=== PATIENT | male | born 1960 | race Caucasian/White ===

== ENCOUNTER 2016-06-30 13:03 | Inpatient (IN) | payer OTHER ==
[~2016-06-30] VITALS: Ht 172.7 cm; Wt 60.4 kg
[~2016-06-30 13:03] MED LIST: ASPIRIN 8181 MG PO; AUGMENTIN875TAB PO; LIBRIUM25 MG PO; METOPROL TAR25 M1 PO; NO HOME MEDS; PREDNISONE10 MG PO; STERAPRED DS10 MG PO; ULTRAM50 M1 PO; VENTOLIN HF1 IN; ZITHROMAX250 MG PO
[2016-06-30] MEDS ORDERED: BACTRIM DS1 TAB PO (13:24)
[2016-06-30] MEDS ORDERED: LASIX 20 MG20 MG/TAB PO (13:24)
[2016-06-30] MEDS ORDERED: DICLOFENAC50 MG PO (13:26)
[2016-06-30] MEDS ORDERED: K-DUR/KLOR-CON20 MEQ PO (13:27)
[2016-06-30 13:43] LABS: HEMATOCRIT 31.8 % (39.0-50.0); HEMOGLOBIN 11.3 g/dl (14.0-18.0); IMMATURE GRANULOCYTES 0.3 % (0.0-1.0); MEAN CELL VOLUME 97.8 fL CALC (80.0-100.0); MEAN CORPUSCULAR HGB 34.8 pG CALC (26.0-32.0); MEAN CORPUSCULAR HGB CONC 35.5 g/L CALC (32.0-36.0); NEUT# 3.67 thou/uL (1.82-7.42); RED BLOOD COUNT 3.25 mill/uL (4.70-6.10); RED CELL DISTRI WIDTH 14.4 % (11.5-15.5)
[2016-06-30 14:01] LABS: ALBUMIN 2.8 g/dL (3.2-5.0); ALKALINE PHOSPHATASE 126 u/l (38-126); ANION GAP 13 (6-22 (CALC)); BILIRUBIN, TOTAL 2.3 mg/dL (0.0-1.4); BUN 4 mg/dL (9-20); BUN/CREATININE RATIO 7 (12-20 (CALC)); CALCIUM 8.2 mg/dL (8.4-10.2); CARBON DIOXIDE 31 mmol/l (22-30); CHLORIDE 96 mmol/l (95-108); CREATININE 0.5 mg/dL (0.7-1.3); GFR > 60 ML/MIN (>=60 (CALC)); GFR FOR AFR.AMER. > 60 ML/MIN (>=60 (CALC)); GLUCOSE 113 mg/dL (75-110); POTASSIUM 2.7 mmol/l (3.5-5.1); SGOT/AST 127 u/l (17-59); SGPT/ALT 34 u/l (21-72); SODIUM 138 mmol/l (137-146); TOTAL PROTEIN 8.2 g/dL (6.3-8.2)
[2016-06-30 14:13] LABS: MYOGLOBIN 28 ng/mL (0 - 121)
[2016-06-30 18:37] LABS: POTASSIUM 2.9 mmol/l (3.5-5.1)
[2016-06-30 19:20] VITALS: BP 108/73
[2016-07-01 00:23] VITALS: BP 94/79
[2016-07-01 04:15] VITALS: BP 109/69
[2016-07-01 06:06] LABS: HEMATOCRIT 29.3 % (39.0-50.0); HEMOGLOBIN 10.2 g/dl (14.0-18.0); MEAN CORPUSCULAR HGB 34.5 pG CALC (26.0-32.0); MEAN CORPUSCULAR HGB CONC 34.8 g/L CALC (32.0-36.0); NEUT# 4.13 thou/uL (1.82-7.42); RED BLOOD COUNT 2.96 mill/uL (4.70-6.10)
[2016-07-01 06:18] LABS: INTERNATIONAL NORMALIZED RATIO 1.6 RATIO (0.7-1.3); PROTHROMBIN TIME 18.3 SECONDS (9.0-12.5)
[2016-07-01 06:19] LABS: ANION GAP 9 (6-22 (CALC)); BUN 6 mg/dL (9-20); BUN/CREATININE RATIO 12 (12-20 (CALC)); CALCIUM 8.2 mg/dL (8.4-10.2); CARBON DIOXIDE 32 mmol/l (22-30); CHLORIDE 99 mmol/l (95-108); CREATININE 0.5 mg/dL (0.7-1.3); GFR > 60 ML/MIN (>=60 (CALC)); GFR FOR AFR.AMER. > 60 ML/MIN (>=60 (CALC)); GLUCOSE 147 mg/dL (75-110); POTASSIUM 3.3 mmol/l (3.5-5.1); SODIUM 136 mmol/l (137-146)
[2016-07-01 06:53] LABS: URINE BILIRUBIN - DIPSTICK NEGATIVE (NEGATIVE); URINE BLOOD DIPSTICK NEGATIVE (NEGATIVE); URINE CLARITY CLEAR; URINE COLOR YELLOW; URINE GLUCOSE - DIPSTICK NEGATIVE (NEGATIVE); URINE KETONE NEGATIVE (NEGATIVE); URINE LEUK ESTERASE NEGATIVE (NEGATIVE); URINE NITRITE - DIPSTICK NEGATIVE (Negative); URINE PROTEIN - DIPSTICK NEGATIVE (NEG-TRACE); URINE SPECIFIC GRAVITY 1.015
[2016-07-01 08:36] VITALS: BP 113/67
[2016-07-01 16:30] VITALS: BP 110/70
[2016-07-01 19:39] VITALS: BP 100/59
[2016-07-01 23:27] VITALS: BP 100/57
[2016-07-02 03:41] VITALS: BP 100/54
[2016-07-02 05:49] LABS: HEMATOCRIT 29.9 % (39.0-50.0); HEMOGLOBIN 10.3 g/dl (14.0-18.0); IMMATURE GRANULOCYTES 0.6 % (0.0-1.0); MEAN CORPUSCULAR HGB 34.8 pG CALC (26.0-32.0); MEAN CORPUSCULAR HGB CONC 34.4 g/L CALC (32.0-36.0); NEUT# 6.94 thou/uL (1.82-7.42); RED BLOOD COUNT 2.96 mill/uL (4.70-6.10); RED CELL DISTRI WIDTH 14.6 % (11.5-15.5)
[2016-07-02 06:12] LABS: ALBUMIN 2.2 g/dL (3.2-5.0); ALKALINE PHOSPHATASE 96 u/l (38-126); ANION GAP 8 (6-22 (CALC)); BILIRUBIN, TOTAL 1.4 mg/dL (0.0-1.4); BUN 9 mg/dL (9-20); BUN/CREATININE RATIO 16 (12-20 (CALC)); CALCIUM 8.1 mg/dL (8.4-10.2); CARBON DIOXIDE 28 mmol/l (22-30); CHLORIDE 104 mmol/l (95-108); CREATININE 0.6 mg/dL (0.7-1.3); GFR > 60 ML/MIN (>=60 (CALC)); GFR FOR AFR.AMER. > 60 ML/MIN (>=60 (CALC)); GLUCOSE 107 mg/dL (75-110); POTASSIUM 3.5 mmol/l (3.5-5.1); SGOT/AST 76 u/l (17-59); SGPT/ALT 30 u/l (21-72); SODIUM 136 mmol/l (137-146); TOTAL PROTEIN 6.7 g/dL (6.3-8.2)
[2016-07-02 06:16] LABS: INTERNATIONAL NORMALIZED RATIO 1.7 RATIO (0.7-1.3); PROTHROMBIN TIME 19.2 SECONDS (9.0-12.5)
[2016-07-02 07:43] VITALS: BP 105/46
[2016-07-02 12:30] VITALS: BP 110/49
[2016-07-02] MEDS ORDERED: ALDACTONE25 MG PO (15:01)
[2016-07-02] MEDS ORDERED: PREDNISONE20 MG PO (15:01)
[2016-07-02] MEDS ORDERED: OMEPRAZOLE20 MG PO (15:12)
[2016-07-02 16:00] VITALS: BP 96/66
[2016-07-02 19:12] VITALS: BP 91/62
[2016-07-02 23:25] VITALS: BP 120/80
[2016-07-03 03:50] VITALS: BP 95/64
[2016-07-03 05:49] LABS: HEMATOCRIT 32.1 % (39.0-50.0); HEMOGLOBIN 10.9 g/dl (14.0-18.0); IMMATURE GRANULOCYTES 1.5 % (0.0-1.0); MEAN CELL VOLUME 101.3 fL CALC (80.0-100.0); MEAN CORPUSCULAR HGB 34.4 pG CALC (26.0-32.0); NEUT# 6.9 thou/uL (1.82-7.42); RED BLOOD COUNT 3.17 mill/uL (4.70-6.10); RED CELL DISTRI WIDTH 14.6 % (11.5-15.5)
[2016-07-03 06:01] LABS: INTERNATIONAL NORMALIZED RATIO 1.7 RATIO (0.7-1.3); PROTHROMBIN TIME 19.4 SECONDS (9.0-12.5)
[2016-07-03 06:36] LABS: ANION GAP 10 (6-22 (CALC)); BUN 13 mg/dL (9-20); BUN/CREATININE RATIO 21 (12-20 (CALC)); CALCIUM 8.2 mg/dL (8.4-10.2); CARBON DIOXIDE 27 mmol/l (22-30); CHLORIDE 103 mmol/l (95-108); CREATININE 0.6 mg/dL (0.7-1.3); GFR > 60 ML/MIN (>=60 (CALC)); GFR FOR AFR.AMER. > 60 ML/MIN (>=60 (CALC)); GLUCOSE 110 mg/dL (75-110); MAGNESIUM 1.5 mg/dL (1.6-2.3); POTASSIUM 3.5 mmol/l (3.5-5.1); SODIUM 137 mmol/l (137-146)
[2016-07-03 07:41] VITALS: BP 89/57
[2016-07-03 13:00] VITALS: BP 103/64
[2016-07-03 15:46] VITALS: BP 106/67
[2016-07-03 19:26] VITALS: BP 82/57
[2016-07-03 21:00] VITALS: BP 93/57
[2016-07-04 00:10] VITALS: BP 94/57
[2016-07-04 04:38] VITALS: BP 95/62
[2016-07-04 06:53] LABS: INTERNATIONAL NORMALIZED RATIO 1.5 RATIO (0.7-1.3); PROTHROMBIN TIME 17.4 SECONDS (9.0-12.5)
[2016-07-04 07:46] VITALS: BP 110/61
[2016-07-04 12:13] VITALS: BP 105/71
[2016-07-04 16:21] VITALS: BP 98/61
[2016-07-04 19:40] VITALS: BP 98/52
[2016-07-05 04:22] VITALS: BP 115/54; BP 94/61
[2016-07-05 05:28] LABS: HEMATOCRIT 32.6 % (39.0-50.0); HEMOGLOBIN 11.2 g/dl (14.0-18.0); IMMATURE GRANULOCYTES 0.5 % (0.0-1.0); MEAN CELL VOLUME 100.9 fL CALC (80.0-100.0); MEAN CORPUSCULAR HGB 34.7 pG CALC (26.0-32.0); MEAN CORPUSCULAR HGB CONC 34.4 g/L CALC (32.0-36.0); NEUT# 7.11 thou/uL (1.82-7.42); RED BLOOD COUNT 3.23 mill/uL (4.70-6.10)
[2016-07-05 05:41] LABS: ALBUMIN 2.5 g/dL (3.2-5.0); ALKALINE PHOSPHATASE 114 u/l (38-126); ANION GAP 11 (6-22 (CALC)); BILIRUBIN, TOTAL 1.3 mg/dL (0.0-1.4); BUN 12 mg/dL (9-20); BUN/CREATININE RATIO 22 (12-20 (CALC)); CALCIUM 8.4 mg/dL (8.4-10.2); CARBON DIOXIDE 25 mmol/l (22-30); CHLORIDE 103 mmol/l (95-108); CREATININE 0.6 mg/dL (0.7-1.3); GFR > 60 ML/MIN (>=60 (CALC)); GFR FOR AFR.AMER. > 60 ML/MIN (>=60 (CALC)); GLUCOSE 128 mg/dL (75-110); MAGNESIUM 1.7 mg/dL (1.6-2.3); POTASSIUM 3.4 mmol/l (3.5-5.1); SGOT/AST 66 u/l (17-59); SGPT/ALT 38 u/l (21-72); SODIUM 135 mmol/l (137-146); TOTAL PROTEIN 7.4 g/dL (6.3-8.2)
[2016-07-05 08:46] VITALS: BP 107/59
[2016-07-05 14:54] VITALS: BP 105/61
[2016-07-05 19:20] VITALS: BP 123/79
[2016-07-06 04:20] VITALS: BP 97/70
[2016-07-06 08:19] VITALS: BP 106/70
[2016-07-06] MEDS ORDERED: LACTULOSE10 GM/15 M PO (12:53)
[2016-07-06] MEDS ORDERED: ALDACTONE50 MG PO (12:53)
[2016-07-06 13:03] LABS: ANION GAP 12 (6-22 (CALC)); BUN 12 mg/dL (9-20); BUN/CREATININE RATIO 17 (12-20 (CALC)); CALCIUM 8.9 mg/dL (8.4-10.2); CARBON DIOXIDE 26 mmol/l (22-30); CHLORIDE 102 mmol/l (95-108); CREATININE 0.7 mg/dL (0.7-1.3); GFR > 60 ML/MIN (>=60 (CALC)); GFR FOR AFR.AMER. > 60 ML/MIN (>=60 (CALC)); GLUCOSE 129 mg/dL (75-110); POTASSIUM 3.4 mmol/l (3.5-5.1); SODIUM 136 mmol/l (137-146)
== END 2016-07-06 14:55 | disposition home health service (06) | DRG 434 ==
LOC: ENPENDDIS → ED 13:03 → ED-I 15:06 → ED 16:03 → MS2 16:04
PROVIDERS: Emergency Medicine; ADMIT Internal Medicine; ATTEND Internal Medicine
PROC: 0W9G3ZX Drainage of Peritoneal Cavity, Percutaneous Approach, Diagnostic (ICD-10-PCS; principal; 2016-07-01)
DX: K70.11 Alcoholic hepatitis with ascites (principal); D69.59 Other secondary thrombocytopenia; K70.31 Alcoholic cirrhosis of liver with ascites; F17.210 Nicotine dependence, cigarettes, uncomplicated; I25.10 Atherosclerotic heart disease of native coronary artery without angina pectoris; M19.90 Unspecified osteoarthritis, unspecified site; E87.6 Hypokalemia; F10.10 Alcohol abuse, uncomplicated; J44.9 Chronic obstructive pulmonary disease, unspecified; D63.8 Anemia in other chronic diseases classified elsewhere

== ENCOUNTER 2016-09-01 14:23 | Emergency (ER) | payer OTHER ==
[~2016-09-01] VITALS: Ht 172.7 cm; Wt 70.0 kg
[~2016-09-01 14:23] MED LIST changes: +ALDACTONE25 MG PO; +ALDACTONE50 MG PO; +BACTRIM DS1 TAB PO; +DICLOFENAC50 MG PO; +K-DUR/KLOR-CON20 MEQ PO; +LACTULOSE10 GM/15 M PO; +LASIX 20 MG20 MG/TAB PO; +OMEPRAZOLE20 MG PO; +PREDNISONE20 MG PO
[2016-09-01] MEDS ORDERED: KLOR-CON M2020 MEQ PO (14:40)
[2016-09-01] MEDS ORDERED: DICLOFENAC SODI75 MG PO (14:40)
[2016-09-01] MEDS ORDERED: LIBRIUM25 MG PO (14:41)
[2016-09-01] MEDS ORDERED: PROAIR HFA108 MCG/AC IN (14:42)
[2016-09-01 15:11] LABS: ALBUMIN 2.4 g/dL (3.2-5.0); ALKALINE PHOSPHATASE 80 u/l (38-126); ANION GAP 11 (6-22 (CALC)); BILIRUBIN, TOTAL 3.1 mg/dL (0.0-1.4); BUN 19 mg/dL (9-20); BUN/CREATININE RATIO 34 (12-20 (CALC)); CALCIUM 7.5 mg/dL (8.4-10.2); CARBON DIOXIDE 31 mmol/l (22-30); CHLORIDE 90 mmol/l (95-108); CREATININE 0.6 mg/dL (0.7-1.3); ETHYL ALCOHOL < 10 mg/dl (0-30); GFR > 60 ML/MIN (>=60 (CALC)); GFR FOR AFR.AMER. > 60 ML/MIN (>=60 (CALC)); GLUCOSE 120 mg/dL (75-110); LIPASE 162 u/l (23-300); POTASSIUM 3.2 mmol/l (3.5-5.1); SGOT/AST 136 u/l (17-59); SGPT/ALT 57 u/l (21-72); SODIUM 128 mmol/l (137-146)
[2016-09-01 15:16] LABS: IMMATURE GRANULOCYTES 0.5 % (0.0-1.0); MEAN CELL VOLUME 104.5 fL CALC (80.0-100.0); MEAN CORPUSCULAR HGB 36.1 pG CALC (26.0-32.0); MEAN CORPUSCULAR HGB CONC 34.6 g/L CALC (32.0-36.0); NEUT# 8.31 thou/uL (1.82-7.42); RED BLOOD COUNT 1.55 mill/uL (4.70-6.10); RED CELL DISTRI WIDTH 16.2 % (11.5-15.5)
[2016-09-01 15:20] LABS: HEMATOCRIT 16.2 % (39.0-50.0); HEMOGLOBIN 5.6 g/dl (14.0-18.0)
[2016-09-01 15:34] LABS: MYOGLOBIN 52 ng/mL (0 - 121)
[2016-09-01 15:52] LABS: INTERNATIONAL NORMALIZED RATIO 1.9 RATIO (0.7-1.3); PROTHROMBIN TIME 21.8 SECONDS (9.0-12.5)
[2016-09-01 19:09] VITALS: BP 140/79
== END 2016-09-01 19:10 | disposition short-term general hospital (02) | DRG 378 ==
LOC: ED 14:23
PROVIDERS: Emergency Medicine
DX: K92.2 Gastrointestinal hemorrhage, unspecified (principal); E72.20 Disorder of urea cycle metabolism, unspecified; D64.9 Anemia, unspecified; R41.82 Altered mental status, unspecified; I25.10 Atherosclerotic heart disease of native coronary artery without angina pectoris; M19.90 Unspecified osteoarthritis, unspecified site; F17.210 Nicotine dependence, cigarettes, uncomplicated
CPT/HCPCS: J2354; S0164

== ENCOUNTER 2016-10-19 07:14 | Emergency (ER) | payer OTHER ==
[~2016-10-19] VITALS: Ht 172.7 cm; Wt 50.0 kg
[~2016-10-19 07:14] MED LIST changes: +DICLOFENAC SODI75 MG PO; +KLOR-CON M2020 MEQ PO; +PROAIR HFA108 MCG/AC IN
[2016-10-19 08:21] LABS: URINE COLOR BLOODY
[2016-10-19 08:22] LABS: URINE BLOOD DIPSTICK LARGE (NEGATIVE); URINE CLARITY TURBID; URINE RBC TNTC RBC/hpf (0-5)
[2016-10-19 08:27] LABS: HEMATOCRIT 31.5 % (39.0-50.0); IMMATURE GRANULOCYTES 0.5 % (0.0-1.0); MEAN CELL VOLUME 95.2 fL CALC (80.0-100.0); MEAN CORPUSCULAR HGB 33.2 pG CALC (26.0-32.0); MEAN CORPUSCULAR HGB CONC 34.9 g/L CALC (32.0-36.0); NEUT# 7.87 thou/uL (1.82-7.42); RED BLOOD COUNT 3.31 mill/uL (4.70-6.10); RED CELL DISTRI WIDTH 17.4 % (11.5-15.5)
[2016-10-19 08:36] LABS: INTERNATIONAL NORMALIZED RATIO 1.8 RATIO (0.7-1.3); PROTHROMBIN TIME 19.7 SECONDS (9.0-12.5)
[2016-10-19 08:37] LABS: ALBUMIN 2.8 g/dL (3.2-5.0); ALKALINE PHOSPHATASE 99 u/l (38-126); AMYLASE 37 u/l (30-110); ANION GAP 14 (6-22 (CALC)); BILIRUBIN, TOTAL 4.2 mg/dL (0.0-1.4); BUN 4 mg/dL (9-20); BUN/CREATININE RATIO 9 (12-20 (CALC)); CARBON DIOXIDE 27 mmol/l (22-30); CHLORIDE 90 mmol/l (95-108); CREATININE 0.5 mg/dL (0.7-1.3); GFR > 60 ML/MIN (>=60 (CALC)); GFR FOR AFR.AMER. > 60 ML/MIN (>=60 (CALC)); GLUCOSE 132 mg/dL (75-110); LIPASE 22 u/l (23-300); SGOT/AST 85 u/l (17-59); SGPT/ALT 41 u/l (21-72); SODIUM 128 mmol/l (137-146); TOTAL PROTEIN 7.3 g/dL (6.3-8.2)
[2016-10-19 08:46] LABS: MYOGLOBIN 115 ng/mL (0 - 121)
[2016-10-19] MEDS ORDERED: DUONEB IN (09:11)
[2016-10-19] MEDS ORDERED: MORPHINE O10 MG/5 ML PO (09:13)
[2016-10-19] MEDS ORDERED: MILK OF MAG30 ML/UDC PO (09:14)
[2016-10-19] MEDS ORDERED: LACTULOSE PO (09:15)
[2016-10-19] MEDS ORDERED: PAIN & FEVER325 MG PO (09:18)
[2016-10-19] MEDS ORDERED: LORAZEPAM0.5 MG PO (09:19)
[2016-10-19] MEDS ORDERED: COMPAZINE10 MG PO (09:20)
[2016-10-19] MEDS ORDERED: BISACODYL10 M1 RE (09:21)
[2016-10-19] MEDS ORDERED: CLARITIN RDT10 MG PO (09:22)
[2016-10-19] MEDS ORDERED: EYE DROP3 OU (09:23)
[2016-10-19] MEDS ORDERED: LASIX 20 MG20 MG/TAB PO (09:27)
[2016-10-19] MEDS ORDERED: HALDOL1 M1 PO (09:27)
[2016-10-19 10:12] VITALS: BP 102/68
== END 2016-10-19 10:48 | disposition hospice, inpatient (51) | DRG 700 ==
LOC: ED 07:14
PROVIDERS: Emergency Medicine
DX: T83.021A Displacement of indwelling urethral catheter, initial encounter (principal); K70.31 Alcoholic cirrhosis of liver with ascites; R31.9 Hematuria, unspecified; R00.0 Tachycardia, unspecified; I25.10 Atherosclerotic heart disease of native coronary artery without angina pectoris; M19.90 Unspecified osteoarthritis, unspecified site; J44.9 Chronic obstructive pulmonary disease, unspecified; F17.210 Nicotine dependence, cigarettes, uncomplicated; Y84.6 Urinary catheterization as the cause of abnormal reaction of the patient, or of later complication, without mention of misadventure at the time of the procedure; Z66 Do not resuscitate; Z51.5 Encounter for palliative care
CPT/HCPCS: J2060